=== PATIENT | female | born 1985 | race Caucasian/White ===

== ENCOUNTER → 2017-04-27 | Outpatient (CLI) | payer OTHER | LOC: FIMAGING 18:37 | PROVIDERS: ATTEND Orthopaedic Surgery | DX: M75.82 Other shoulder lesions, left shoulder (principal) ==

== ENCOUNTER 2017-05-13 06:08 | Day surgery (SDC) | payer OTHER ==
--- NOTE | 2017-05-12 13:40 | GHP ---
[f rep st] PREOP HISTORY AND PHYSICAL DATE OF ADMISSION: 05/13/2017 REASON FOR ADMISSION: Left shoulder impingement. 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 She has had cortisone injections and physical therapy with only minimal improvement in her pain. An MRI was obtained, which showed subacromial im pingement and a small superior labral tear. Decision has been made to proceed with an arthroscopic d ecompression and labral debridement of the left shoulder. PRIOR MEDICAL HISTORY: She has hypothyroidism and migraines. MEDICATIONS: Eye drops, B12, levothyroxine, Zatropan 10 mg. ALLERGIES: Latex and albuterol. SOCIAL HISTORY: She is currently a MA. Does not smoke. Reports occasional alcohol use. REVIEW OF SYSTEMS: No shortness of breath, chest pain. Otherwise, review of systems is unremarkable . PHYSICAL EXAMINATION: VITAL SIGNS: She is 5 feet 3 inches tall, weighs 190 pounds. Blood pressure is 124/86, heart rate 76. Respiratory rate is 14 on room air. GENERAL: Alert and oriented x3. MARIN NT: Normocephalic, atraumatic. Extraocular muscles intact. NECK: Supple. There is no lymphadenop athy. No JVD. CHEST: Clear to auscultation. CARDIOVASCULAR: Regular rate and rhythm. ABDOMEN: Soft, nontender, nondistended. EXTREMITIES: Left shoulder is without any atrophy or deformity. She has a little prominence over the AC joint. Range of motion: Full extension, 160 degrees of forward flexion, 80 degrees external rotation, internal rotation: She can get her hand to T6. Supraspinatu s strength 4+/5 with some pain. Infraspinatus 5/5. Subscapularis 5/5. Positive impingement sign. 1+ sulcus sign. IMAGING: MRI is reviewed which shows a partial-thickness tear of the supraspinatus tendon, subacromi al bursitis, mild arthritis at the AC joint, and there is some degenerative tearing at the superior a spect of the labrum. Glenohumeral cartilage in good shape. ASSESSMENT: Left shoulder impingement. PLAN: Long discussion with the patient. She has failed conservative management, continues to have p ain, difficult for her to work. I think, at this point, we will plan on an arthroscopic decompressio n and labral debridement of the shoulder. She will do postoperative physical therapy. She can retur n to work in 3-5 days. /[id number]/MODL
[2017-05-13] MEDS ORDERED: ceFAZolin 2 GM/DEXTROSE 100 ML IV ONE (06:14)
[2017-05-13] MEDS ORDERED: LIDOCAINE 1% 2 ML INJ ID PRN (06:15)
[2017-05-13] MEDS ORDERED: LR 1,000 ML IV ONE (06:15)
[2017-05-13] MEDS ORDERED: MIDAZOLAM 2 MG/2 ML VIAL IVP ONE (06:46)
--- NOTE | 2017-05-13 06:49 | PDANEPAE ---
ANE History of Present Illness 32 year old female presents for left shoulder scope. ANE Past Medical History - Cardiovascular History Hx Hypertension: No Hx Arrhythmias: No Hx Chest Pain: No Hx Coronary Artery / Peripheral Vascular Disease: No Hx CHF / Valvular Disease: No Hx Palpitations: No - Pulmonary History Hx COPD: No Hx Asthma/Reactive Airway Disease: Yes Hx Recent Upper Respiratory Infection: No Hx Oxygen in Use at Home: No Hx Sleep Apnea: No Sleep Apnea Screening Result - Last Documented: Negative Pulmonary History Comment: asthma - Neurologic History Hx Cerebrovascular Accident: No Hx Seizures: No Hx Dementia: No - Endocrine History Hx Diabetes: No Hypothyroid: Yes Hyperthyroid: No Obesity: yes, mild - Renal History Hx Renal Disorders: No - Liver History Hx Hepatic Disorders: No - Neurological & Psychiatric Hx Hx Neurological and Psychiatric Disorders: No - Cancer History Hx Cancer: No - Congenital Disorder History Hx Congenital Disorders: No - GI History GERD: no Hx Gastrointestinal Disorders: No - Chronic Pain History Chronic Pain: No - Surgical History Prior Surgeries: uterine septum removal 2014/2015. T&A 1993 ANE Review of Systems Review of systems is: negative Review of Systems: - Exercise capacity Exercise capacity: >=4 METS METS (RN): 4 METS ANE Patient History - Allergies Allergies/Adverse Reactions: latex [Latex] Allergy (Intermediate, Verified 04/20/16 20:27) albuterol Allergy (Verified 04/20/16 20:27) - Home Medications Home medications: home medication list seen and reviewed Home Medications: XOPENEX HFA IH PRN 12/17/10 [Last Taken 12/17/10 07:00] B-12 5,000 Mcg Sublingual Tab PO DAILY 05/05/17 [Last Taken Unknown] BIOTIN 10,000 PO DAILY 05/05/17 [Last Taken Unknown] Calcium + D Soft Chewable Tab PO DAILY 05/05/17 [Last Taken Unknown] Levothyroxine 125 DAILY AT 6AM 05/05/17 [Last Taken Unknown] Prenat Vit Comb.10/Iron/FA/Dha DAILY 05/05/17 [Last Taken Unknown] Xopenex NEB PRN 05/05/17 [Last Taken Unknown] - NPO status NPO Status: no food or drink >8 hours NPO Since - Liquids (Date): 05/13/17 NPO Since - Liquids (Time): 21:15 NPO Since - Solids (Date): 05/13/17 NPO Since - Solids (Time): 21:15 - Anes Hx Anes Hx: no prior problems - Smoking Hx Smoking Status: Former smoker - Alcohol Use Alcohol Use: Occasionally - Family Anes Hx Family Anes Hx: neg - N/A Family Hx Anesthesia Complications: none ANE Labs/Vital Signs - Vital Signs Vital Signs: reviewed preoperatively; see RN documention for details Blood Pressure: 105/69 Heart Rate: 71 Respiratory Rate: 16 O2 Sat (%): 96 Height: 160.02 cm Weight: 87.997 kg ANE Physical Exam - Airway Neck exam: FROM Mallampati Score: Class 1 Mouth exam: normal dental/mouth exam - Pulmonary Pulmonary: no respiratory distress - Cardiovascular Cardiovascular: regular rate and rhythym - ASA Status ASA Status: II ANE Anesthesia Plan Anesthesia Plan: general endotracheal anesthesia Regional Anesthesia: single shot NB ("rescue" block in PACU if necessary.)
[2017-05-13] MEDS ORDERED: BUPIVACAINE/EPI 0.5% 30 ML SDV ONE (06:55)
[2017-05-13] MEDS ORDERED: EPINEPHrine 30 MG/30 ML MDV ONE (06:55)
[2017-05-13] MEDS ORDERED: LIDO/EPI 1% **for epidural** 30 ML SDV ONE (06:55)
--- NOTE | 2017-05-13 06:56 | PDHPUP ---
History & Physical Update H&P update statement: This history and physical update is based on an assessment of the patient which was completed after admission or registration (within 24 hours), but prior to the surgery/procedure. H&P update: H&P reviewed & patient examined, no change in patient's condition since H&P completed
[2017-05-13] MEDS ORDERED: PROPOFOL 200 MG/20 ML VIAL ONE (07:07)
[2017-05-13] MEDS ORDERED: fentaNYL 100 MCG/2 ML INJ ONE ×3 (07:07→09:31)
[2017-05-13] MEDS ORDERED: ROCURONIUM 50 MG/5 ML VIAL ONE (07:08)
[2017-05-13] MEDS ORDERED: LIDOCAINE 2% 5 ML SDV ONE (07:08)
[2017-05-13] MEDS ORDERED: PHENYLEPHRINE HCL 100 MCG/ML SYR ONE (07:34)
[2017-05-13] MEDS ORDERED: DEXAMETHASONE 4 MG/ML VIAL ONE (07:34)
[2017-05-13] MEDS ORDERED: SUGAMMADEX SODIUM 200 MG/2 ML VIAL IVP ONE (08:01)
[2017-05-13] MEDS ORDERED: ONDANSETRON 4 MG/2 ML VIAL ONE (08:01)
[2017-05-13] MEDS ORDERED: ONDANSETRON 4 MG/2 ML VIAL IVP PRN (08:07)
[2017-05-13] MEDS ORDERED: OXYCODONE/APAP 5/325 TAB PO PRN (08:07)
[2017-05-13] MEDS ORDERED: NALOXONE HCL 0.4 MG/ML INJ IVP PRN (08:07)
[2017-05-13] MEDS ORDERED: fentaNYL 100 MCG/2 ML INJ IVP PRN (08:07)
[2017-05-13] MEDS ORDERED: LR 500 ML IV PRN (08:07)
--- NOTE | 2017-05-13 08:45 | POSTOPPROG ---
Post Op Note Date of Operation: 05/13/17 Surgeon: Aston Flores Anesthesiologist: Rodolfo Anesthesia: GET(General Endotracheal) Pre-op Diagnosis: Lt shoulder impingement Post-op Diagnosis: same Procedure: 1. Labral debridement 2. SAD Inf/Abcess present in the surg proc area at time of surgery?: No EBL: Minimal Complications: none
--- NOTE | 2017-05-13 09:25 | GOP ---
[f rep st] OPERATIVE REPORT DATE OF OPERATION: 05/13/2017 SURGEON: Aston Flores MD ANESTHESIA: General. ANESTHESIOLOGIST: Tony Reynolds MD PREOPERATIVE DIAGNOSIS: Left shoulder impingement. POSTOPERATIVE DIAGNOSIS: Left shoulder impingement. PROCEDURE PERFORMED: 1. Labral debridement. 2. Subacromial decompression. FINDINGS: ESTIMATED BLOOD LOSS: Minimal. DESCRIPTION OF PROCEDURE: After appropriate informed consent was obtained, patient was taken to the operating room and placed supine on the operating table. Time-out was performed and patient was iden tified, and correct side and site were identified. She received 2 g of Ancef preoperatively. Follow ing the induction of general endotracheal tube anesthesia, she was positioned in the beach chair posi tion with all bony prominences well padded. Left upper extremity was prepped and draped in a sterile fashion. I instilled 30 mL of 1% lidocaine with epinephrine in 30 mL of normal saline through the s tandard posterior portal then insufflated the joint. I then made a small nestor incision and introduce d the camera through the standard posterior portal. Obtained a standard anterior portal under direct visualization and placed a metal working cannula through that portal there was a small tear of the l abrum anteriorly, as well as some degenerative fraying of the free edge superiorly. I debrided both t hese areas back with the motorized shaver. The glenohumeral cartilage was in good shape. The unders urface of the rotator cuff showed some mild fraying but majority of the tendon was intact. I reposit ioned the camera in the subacromial space and obtained a standard lateral portal under direct visuali zation. She had a type 2 acromion with a very narrow rotator cuff outlet. There was extensive synov itis and bursitis. I debrided this back with a combination of the shaver and electrocautery device. I then performed a subacromial decompression using the motorized bur. Looking at the distal end of the clavicle, there was good space there without any spurring; I left the clavicle alone. Upper surf carlos alberto of the rotator cuff was without tear and was intact in its entirety. Instruments were withdrawn. Portal incisions were closed with 3-0 nylon. I instilled 30 mL 0.5% Marcaine with epinephrine into the shoulder joint. Sterile dressing was applied. Sling was applied. Patient was awakened from an esthesia and taken to the recovery room in satisfactory condition. There were no immediate intraoper ative complications. COMPLICATIONS: None. DRAINS: None. HISTORY: The patient is a 32-year-old female with long-standing left shoulder pain that has failed t o improve with multiple rounds of organized physical therapy as well as cortisone injections. Decisi on was made to proceed with a decompression of the shoulder. /[id number]/MODL
--- NOTE | 2017-05-13 09:53 | POSTANESTH ---
Post Anesthetic Evaluation Cardiovascular Status: Normal, Stable, Similar to Pre-Op Cond Respiratory Status: Normal, Stable, Similar to Pre-op Cond. Level of Consciousness/Mental Status: Can Participate in Eval, Alert and Oriented Pain Control: Adequate, Prn Tx Ordered Nausea/Vomiting Control: Adequate, Prn Tx Ordered Complications Possibly Related to Anesthesia: None Noted
[2017-05-13 10:16] VITALS: BP 99/75; RESP 16; TEMP 97.5
[2017-05-13 10:49] VITALS: PULSE 75; O2SAT 98
== END 2017-05-13 10:51 | disposition home or self-care (01) ==
LOC: FSGY 06:08
PROVIDERS: ATTEND Orthopaedic Surgery
DX: M75.42 Impingement syndrome of left shoulder (principal); E03.9 Hypothyroidism, unspecified; G43.909 Migraine, unspecified, not intractable, without status migrainosus
CPT/HCPCS: J0690; J1100; J2250; J2370; J2405; J2704; J3010